=== PATIENT | male | born 1965 | race American Indian/Alaskan Native ===

== ENCOUNTER 2016-10-21 11:25 | Inpatient (IN) | payer BC ==
[2016-10-21] MEDS ORDERED: NORVASC PO SCH ×2 (12:00)
[2016-10-21] MEDS ORDERED: ZESTRIL PO SCH ×2 (12:00)
--- NOTE | 2016-10-21 13:31 | Admit Criteria Form ---
Admission Criteria Documentation: CARDIOLOGY GRG Clinical Indications for Admission to Inpatient Care ( Place 'X' for any and all applicable criteria): Hospital admission is needed for appropriate care of the patient because of ANY ONE of the following (1): [ ] I. Hemodynamic instability as indicated by ALL of the following (1)(2)(3) (4)(5) [ ]a) Vital signs or other findings not as expected for chronic patient condition or baseline [ ]b) Instability indicated by ANY ONE of the following: [ ]i) Hypotension [ ]ii) Symptomatic Tachycardia unresponsive to treatment ( e.g., analgesia, fluids, sedation as indicated) [ ]iii) Inadequate perfusion indicated by ANY ONE of the following: [ ] 1) Lactic acidosis (> 2 mmol/L) [ ] 2) New abnormal capillary refill (> 3 seconds) [ ] 3) Reduced urine output [ ] 4) New altered mental status [ ]iv) Orthostatic vital sign changes unresponsive to treatment (e.g., fluids) [ ]v) IV inotropic or vasopressor medication required to maintain adequate blood pressure or perfusion [ ] II. Severe heart failure as indicated by ANY ONE of the following(17)(18) [ ]a) Respiratory distress [ ]b) Hypotension [ ]c) Anasarca (refractory to outpatient therapy) [ ]d) Cardiac arrhythmias of immediate concern [ ]e) Myocardial ischemia [ ] III. Cardiac arrhythmias or findings of immediate concern indicated by ANY ONE of the following (19)(20): [ ] a) Heart rhythms that are inherently dangerous or unstable indicated by ANY ONE of the following (21)(22)(23): [ ] i) Resuscitated ventricular fibrillation or cardiac arrest [ ] ii) Ventricular escape rhythm [ ] iii) Sustained ventricular tachycardia (30 seconds or more of ventricular rhythm at greater than 100 beats per minute) [ ] iv) Nonsustained ventricular tachycardia and ANY ONE of the following: [ ] 1) Suspected cardiac ischemia as cause or consequence of ventricular tachycardia [ ] 2) In setting of acute myocarditis [ ] b) Unstable cardiac conduction defects indicated by ANY ONE of the following(23)(24)(25) [ ] i) Type II second-degree atrioventricular block [ ]ii) Third-degree atrioventricular block [ ]iii) New-onset left bundle branch block with suspected myocardial ischemia [ ]c) Any heart rhythm and ANY ONE of the following (21)(22)(26)(27) (28) [ ] i) Continuous long-term ECG monitoring needed (e.g., initiation of drug requiring monitoring for more than 24 hours) [ ] ii) Patient has automatic implanted cardioverter defibrillator that is repeatedly firing, malfunctioning, or in need of immediate adjustment of settings beyond the scope of ambulatory or observation care [ ]d) Heart rhythms of concern due to ANY ONE of the following: [ ] i) Hypotension [ ] ii) Respiratory distress [ ] iii) Association with other significant symptoms (e.g., bradycardia with syncope or ongoing dizziness, supraventricular tachycardia with chest pain (14)(15)(17) [ ] IV. Monitoring for cardiac contusion beyond the scope of observation care needed [A](30)(31)(32) [ ] V. Surgical or device complication (e.g., valve replacement complication , pacemaker dysfunction) (35)(41)(44)(45)(46) [ ] . Inpatient palliative care needed. [B](49) Also use Inpatient Palliative Care Criteria [ ] VII. Nonbacterial thrombotic (marantic) endocarditis (36)(43)(47)(48) [ X] VIII. Cardiology condition, symptom, or finding for which emergency and observation care has failed or are not considered appropriate. [ ] IX. Acute valvular disease requiring inpatient as indicated by ANY ONE of the following (41) [ ]a) Acute valvular regurgitation (42) [ ]b) Noninfectious valvulitis (43) [ ]c) Obstructive valve thrombosis [ ]d) Paravalvular leak [ ]e) Other significant valvular disorder remaining after emergency or observation level of care (as appropriate) [ ]X. Pericardial disease requiring inpatient treatment as indicated by ANY ONE of the following (33)(34)(35)(36)(37) [ ]a) Suspected tamponade (38)(39)(40) [ ]b) Hemopericardium [ ]c) Other significant pericardial disorder remaining after emergency or observation level of care (as appropriate) [ ] XI. Cardiac ischemia beyond scope of emergency and observation care. [ ] XII. Hypertension requiring inpatient treatment as indicated by ANY ONE of the following (6)(7)(8) [ ]a) SBP greater than 220 mm Hg or DBP greater than 120 mmHg despite treatment [ ]b) SBP greater than 140 mm Hg or DBP greater than 100 mm Hg with evidence of acute end organ damage as indicated by ANY ONE of the following [ ] i) Altered mental status [ ] ii) Acute renal failure as indicated by new onset of ANY ONE of the following (9)(10)(11)(12)(13) [ ]1) 3-fold rise in serum creatinine from baseline [ ]2) Serum creatinine greater than 4 mg/dL ( 354 micromoles/L) with acute rise greater than 0.5 mg/dL (44.2 micromoles/L) [ ]3) Reduction of more than 75% in estimated glomerular filtration rate from baseline [ ]4) Estimated glomerular filtration rate less than 35 mL/min/1.73m2 (0.59 mL/sec/1.73m2) in child up to 18 years of age [ ]5) Cessation of urine output indicated by ALL of the following [ ]A. Adequate volume status [ ]B. Inadequate urine output as indicated by ANY ONE of the following [ ]a. Urine output less than 0.3 mL/kg/hr for 24 hours [ ]b. Anuria (urine output less than 0.1 mL/kg/hr) for 12 hours [ ] iii) Aortic dissection [ ] iv) Myocardial Ischemia [ ] v) Left ventricular heart failure [ ]vi) Retinal Hemorrhage [ ]vii) Other significant finding [ ]c) Hypertension in child requiring inpatient treatment as indicated by ALL of the following(14)(15)(16) [ ] i) Outpatient treatment not effective, not available, or not appropriate [ ]ii) SBP or DBP greater than 95th percentile for age [ ]iii) Evidence of acute end organ damage as indicated by ANY ONE of the following [ ]1) Altered mental status [ ]2) Acute renal failure as indicated by new onset of ANY ONE of the following(9)(10)(11)(12)(13) [ ]A. 3-fold rise in serum creatinine from baseline [ ]B. Serum creatinine greater than 4 mg/dL (354 micromoles/L) with acute rise greater than 0.5 mg/dL (44.2 micromoles/L) [ ]C. Reduction of more than 75% in estimated glomerular filtration rate from baseline [ ]D. Estimated glomerular filtration rate less than 35 mL/min/1.73m2 (0.59 mL/sec/1.73m2) in child up to 18 years of age [ ]E. Cessation of urine output indicated by ALL of the following [ ]a. Adequate volume status [ ]b. Inadequate urine output as indicated by ANY ONE of the following [ ]i) Urine output less than 0.3 mL/kg/hr for 24 hours [ ]ii) Anuria ( urine output less than 0.1 mL/kg/hr) for 12 hours [ ]3) Severe headache [ ]4) Visual disturbance [ ]5) Retinal hemorrhage [ ]6) Other significant finding [ ]XIII. Complications of transplanted heart indicated by ANY ONE of the following(61): [ ]a) Acute graft rejection requiring inpatient management (eg, intravenous immunosuppression)(62)(63) [ ]b) Acute graft heart failure indicated by ANY ONE of the following(64): [ ]i) Hemodynamic instability [ ]ii) Cardiac arrhythmias of immediate concern [ ]iii) Pulmonary edema that is very severe (eg, mechanical ventilation needed, imminent or likely, need for 100% oxygen to keep oxygen saturation above 90%) [ ]iv) Pulmonary edema that is persistent as indicated by ALL of the following: [ ]1) New need for oxygen therapy to keep oxygen saturation above 90% (or increased FiO2 need from baseline) [ ]2) Has not improved sufficiently with emergency department or observation care IV diuretics or other heart failure treatments[E] [ ]v) Altered mental status that is severe or persistent [ ]vi) Increased creatinine (new on laboratory test) with reduction of more than 50% in estimated glomerular filtration rate from baseline [ ]vii) Progressively (ongoing) rising creatinine (known from past laboratory test) with reduction of more than 25% in estimated glomerular filtration rate from baseline [ ]viii) Acute renal failure [ ]ix) Acute peripheral ischemia (eg, examination shows pulseless, cool, mottled, or cyanotic extremity) [ ]x) Pulmonary artery catheter monitoring needed [ ]xi) Other sign or symptom of heart failure requiring inpatient treatment (ie, too severe or not responsive to outpatient and observation care treatment) [ ]c) Infection requiring inpatient management (eg, Hemodynamic instability, need for intravenous antimicrobial treatment)(66)(67)(68)(69)(70) [ ]d) Cardiac allograft vasculopathy requiring inpatient management ( eg evidence of cardiac ischemia)(71) [ ]e) Other complication of transplanted heart (eg, stroke, severe pulmonary hypertension, severe valvular dysfunction) requiring inpatient management(72) The original [facility] [employer] content created by [email or web address] has been revised. The portions of the content which have been revised are identified through the use of italic text or in bold, and [facility] has neither reviewed nor approved the modified material. All other unmodified content is copyright [facility] [employer]. Please see references footnoted in the original [facility] [employer] edition 2016 Admission Criteria Met: Yes
[2016-10-21] MEDS ORDERED: APRESOLINE IV PRN (14:19)
[2016-10-21 14:42] LABS: Basophils % (Auto) 0.3 % (0.0-1.8); Eosinophils % (Auto) 0.2 % (0.0-4.3); Hematocrit 50.2 % (35.5-45.6); Hemoglobin 16.9 gm/dl (11.8-15.2); Mean Corpuscular HGB Conc 34 % (32-34); Mean Corpuscular Hemoglobin 31 pg (28-32); Mean Corpuscular Volume 92 fl (84-94); Platelet Count 265 K/mm3 (140-440); Red Blood Count 5.46 M/mm3 (3.65-5.03); Red Cell Distribution Width 13.8 % (13.2-15.2); White Blood Count 5.3 K/mm3 (4.5-11.0)
[2016-10-21 14:52] LABS: INR 1.02 (0.87-1.13)
[2016-10-21] MEDS: HCTZ PO SCH (14:52)
[2016-10-21] MEDS: PROCARDIA XL PO SCH ×2 (14:52→22:05)
[2016-10-21 14:53] LABS: Partial Thromboplastin Time 36.1 Sec. (24.2-36.6)
[2016-10-21] MEDS: LOVENOX SUB-Q SCH (14:53)
[2016-10-21 15:02] LABS: Magnesium 2.2 mg/dL (1.7-2.3); Phosphorous 2.5 mg/dL (2.5-4.5)
[2016-10-21 15:06] LABS: Alanine Aminotransferase 31 units/L (7-56); Albumin/Globulin Ratio 1.2 %; Alkaline Phosphatase 60 units/L (35-129); Anion Gap 18 mmol/L; Bilirubin,Total 0.5 mg/dL (0.1-1.2); Blood Urea Nitrogen 16 mg/dL (9-20); Calcium 9.4 mg/dL (8.4-10.2); Carbon Dioxide 25 mmol/L (22-30); Chloride 100.1 mmol/L (98-107); Glucose 114 mg/dL (75-100); Potassium 4.2 mmol/L (3.6-5.0); Sodium 139 mmol/L (137-145); Total Protein 7.4 g/dL (6.3-8.2)
[2016-10-21] MEDS ORDERED: LASIX IV ONE (16:11)
--- NOTE | 2016-10-21 16:39 | Consultation ---
History of Present Illness Consult date: 10/21/16 Requesting physician: TIBURCIO BLANKENSHIP Consult reason: other (abnormal EKG) History of present illness: Pt is a 51 YO male with a past medical history significant for HTN. He is previously unknown to our practice. He presented with c/o SOB, orthopnea, and ANDREA x 2 weeks. He initially thought his symptoms were allergy related and was prescribed an inhaler by his PCP. His symptoms did not improve with the inhaler , and he returned today for OP follow up. In the office, his SBP was noted to be >200 per pt report. He was sent to hospital for further eval/management. He denies any chest pain, palpitations, BLE edema, n/v, diaphoresis, dizziness, or syncope. He reports that he has not taken any BP meds for the past 1-2 months. Past History Past Medical History: hypertension Past Surgical History: No surgical history Social history: , lives with family Family history: no significant family history Medications and Allergies Allergies Allergy/AdvReac Type Severity Reaction Status Date / Time No Known Allergies Allergy Unverified 10/21/16 11:28 Home Medications Medication Instructions Recorded Confirmed Last Taken Type Lisinopril [Zestril TAB] 40 mg PO QDAY 10/21/16 10/21/16 1 Day Ago History 40 mg Active Meds: Active Medications Enoxaparin Sodium (Lovenox) 40 mg SUB-Q QDAY [facility] Last Admin: 10/21/16 14:53 Dose: 40 mg Hydralazine HCl (Apresoline) 20 mg IV Q8HR PRN PRN Reason: Hypertension Last Admin: 10/21/16 14:52 Dose: 20 mg Hydrochlorothiazide (Hctz) 25 mg PO QDAY [facility] Last Admin: 10/21/16 14:52 Dose: 25 mg Lisinopril (Zestril) 40 mg PO DAILY [facility] Metoprolol Tartrate (Lopressor) 50 mg PO BID [facility] Nifedipine (Procardia Xl) 60 mg PO BID [facility] Last Admin: 10/21/16 14:52 Dose: 60 mg Review of Systems All systems: negative Cardiovascular: orthopnea, shortness of breath, dyspnea on exertion, no chest pain Respiratory: shortness of breath, dyspnea on exertion, no cough, no congestion, no wheezing, no pain on inspiration Physical Examination Vital Signs Pulse Resp Pulse Ox 110 H 22 97 10/21/16 13:31 10/21/16 13:31 10/21/16 13:31 General appearance: no acute distress HEENT: Positive: PERRL, Normocephaly, Mucus Membranes Moist Neck: Positive: neck supple, trachea midline Cardiac: Positive: Reg Rate and Rhythm, S1/S2 Lungs: Positive: Other (bibasilar rales ) Neuro: Positive: Grossly Intact, Cranial Nerve 2-12 Intact Abdomen: Positive: Unremarkable, Soft, Active Bowel Sounds. Negative: Tender Skin: Positive: Clear. Negative: Rash, Wound Musculoskeletal: No Fluid Collection, No Pain, Normal Range of Motion Extremities: Present: upper extr. pulses, lower extr. pulses. Absent: edema Results 10/21/16 13:34 10/21/16 13:34 Cardiac Enzymes 10/21/16 Range/Units 13:34 AST 22 (5-40) units/L Coagulation 10/21/16 Range/Units 13:34 PT 13.3 (12.2-14.9) Sec. INR 1.02 (0.87-1.13) APTT 36.1 (24.2-36.6) Sec. CBC 10/21/16 Range/Units 13:34 WBC 5.3 (4.5-11.0) K/mm3 RBC 5.46 H (3.65-5.03) M/mm3 Hgb 16.9 H (11.8-15.2) gm/dl Hct 50.2 H (35.5-45.6) % Plt Count 265 (140-440) K/mm3 Lymph # 1.2 (1.2-5.4) K/mm3 [place] # 0.4 (0.0-0.8) K/mm3 Eos # 0.0 (0.0-0.4) K/mm3 Baso # 0.0 (0.0-0.1) K/mm3 Comprehensive Metabolic Panel 10/21/16 Range/Units 13:34 Sodium 139 (137-145) mmol/L Potassium 4.2 (3.6-5.0) mmol/L Chloride 100.1 (98-107) mmol/L Carbon Dioxide 25 (22-30) mmol/L BUN 16 (9-20) mg/dL Creatinine 1.3 (0.8-1.5) mg/dL Glucose 114 H (75-100) mg/dL Calcium 9.4 (8.4-10.2) mg/dL AST 22 (5-40) units/L ALT 31 (7-56) units/L Alkaline Phosphatase 60 (35-129) units/L Total Protein 7.4 (6.3-8.2) g/dL Albumin 4.0 (3.9-5) g/dL - Imaging and Cardiology Echo: pending EKG: report reviewed EKG interpretations - Telemetry EKG Rhythm: Sinus Rhythm - EKG Sinus rhythms and dysrhythmias: sinus rhythm Chamber hypertrophy or enlargement: left ventricular hypertro Assessment and Plan Assessment: Acute heart failure Accelerated HTN Plan: Obtain CXR. Obtain echo. Initiate BB. Cont procardia, ACEI, HCTZ, and PRN IV hydralazine. Give IV lasix, 40mg x 1 dose. Repeat BMP in AM. Assessment and plan reviewed with pt at bedside. The patient has been seen in conjunction with Dr. Luz who agrees with the assessment and plan of care.
--- NOTE | 2016-10-21 20:34 | History and Physical Report ---
History of Present Illness Date of examination: 10/21/16 Date of admission: 10/21/16 12:21 Chief complaint: Shortness of breath, elevated HTN History of present illness: Patient is a 51-year-old gentleman was a history of hypertension well-known to me, came in the office about a week ago complaining of allergies with congestion. Patient was given allergy medications. Called back to the office that he was having shortness of breath. He was advised to come in today. He has stopped taking his hypertensive medications for over 1 month ago. He claims that he had been exercising and eating right and therefore is that his blood pressure should be within normal limits. In the office today blood pressure was greater than 180/130. Patient also complained of shortness of breath and palpitation. Direct admission was therefore requested. On direct admission EKG showed abnormal findings consistent with ischemic changes on the lateral leads. Chest x-ray shows increased bronchial markings. ProBNP was greater than 3000. Cardiology consult was obtained. Echocardiogram as order as well as Eriberto and ACEI. Pt wa diagnosed with congestive heart failure. Denies any chest pain, no diaphoresis. However had palpitations and shortness of breath. Past History Past Medical History: hypertension Past Surgical History: No surgical history Social history: , lives with family Family history: no significant family history Medications and Allergies Allergies Allergy/AdvReac Type Severity Reaction Status Date / Time No Known Allergies Allergy Unverified 10/21/16 11:28 Home Medications Medication Instructions Recorded Confirmed Last Taken Type Lisinopril [Zestril TAB] 40 mg PO QDAY 10/21/16 10/21/16 1 Day Ago History 40 mg Active Meds: Active Medications Enoxaparin Sodium (Lovenox) 40 mg SUB-Q QDAY [facility] Last Admin: 10/21/16 14:53 Dose: 40 mg Hydralazine HCl (Apresoline) 20 mg IV Q8HR PRN PRN Reason: Hypertension Last Admin: 10/21/16 14:52 Dose: 20 mg Hydrochlorothiazide (Hctz) 25 mg PO QDAY [facility] Last Admin: 10/21/16 14:52 Dose: 25 mg Lisinopril (Zestril) 40 mg PO DAILY [facility] Metoprolol Tartrate (Lopressor) 50 mg PO BID [facility] Nifedipine (Procardia Xl) 60 mg PO BID [facility] Last Admin: 10/21/16 14:52 Dose: 60 mg Review of systems Constitutional: Well Nouridhed and Well developed. Head: NC/ AT Eyes: Denies any visual impairments. No discharge from the eyes Nose: Denies any rhinorrhea or epistaxis Throats: Denies any post nasal drainage. Ears: Denies any hearing deficits Cardiovascular system: Has shortness of breath. No orthopnea, paroxysmal nocturnal dyspnea, or palpitation. Respiratory system: Denies any cough, difficulty breathing, wheezing, pleuritic chest pain, Gastrointestinal system: Denies any abdominal pain, nausea vomiting, hematemesis or melena. Neurological system: Denies any headache, slurred speech, facial droop, lateralizing weakness Genitalia system: Denies any dysuria, urinary frequency or urgency, urethral discharge Skin: No rashes, hyperpigmented spots. Hematological: Denies any cervical tenderness hemorrhages or petechia. Immunological: Denies any multiple septic spots, Lymphatic: Denies any generalized lymphadenopathy. Endocrine: Denies any polyuria, polydipsia, polyphagia. No heat or cold intolerance. Musculoskeletal system: No joint pain or swelling. Psych: No visual, tactile, auditory or hallucination Exam - Constitutional Vitals: Temp Pulse Resp BP Pulse Ox 98.4 F 100 H 20 126/90 98 10/21/16 18:00 10/21/16 18:00 10/21/16 18:00 10/21/16 18:31 10/21/16 18:00 General appearance: Present: no acute distress, well-nourished - EENT Eyes: Present: PERRL ENT: hearing intact, clear oral mucosa - Neck Neck: Present: supple, normal ROM - Respiratory Respiratory effort: normal Respiratory: bilateral: CTA - Cardiovascular Heart Sounds: Present: S1 & S2. Absent: rub, click - Extremities Extremities: pulses symmetrical, No edema Peripheral Pulses: within normal limits - Abdominal General gastrointestinal: Present: soft, non-tender, non-distended, normal bowel sounds Male genitourinary: Present: normal - Integumentary Integumentary: Present: clear, warm, dry - Musculoskeletal Musculoskeletal: gait normal, strength equal bilaterally - Psychiatric Psychiatric: appropriate mood/affect, intact judgment & insight - Neurologic Neurologic: CNII-XII intact, moves all extremities Results - Labs CBC & Chem 7: 10/21/16 13:34 10/21/16 13:34 Labs: Abnormal lab results 10/21/16 10/21/16 10/21/16 Range/Units 13:34 13:34 13:34 RBC 5.46 H (3.65-5.03) M/mm3 Hgb 16.9 H (11.8-15.2) gm/dl Hct 50.2 H (35.5-45.6) % [place] % (Auto) 7.7 H (0.0-7.3) % Glucose 114 H (75-100) mg/dL NT-Pro-B Natriuret Pep 3722 H (0-900) pg/mL Assessment and Plan 1. Acute heart failure: Regular function to be evaluated with echocardiogram. In the interim we'll commence patient on carvedilol, lisinopril, nifedipine, and diaphoretic. Strict input and output. Daily weights. 2 g sodium diet. 2. Malignant hypertension: Commence patient on the above medication that included lisinopril, beta blockers. Congenital blockers. 3, noncompliance with medication: Calcium noncompliance was done. 4. DVT prophylaxis with Lovenox and GI Pepcid.
[2016-10-21] MEDS ORDERED: TYLENOL PO PRN (21:37)
[2016-10-21] MEDS: LOPRESSOR PO SCH (22:05)
[2016-10-22 07:40] LABS: Basophils % (Auto) 0.5 % (0.0-1.8); Eosinophils % (Auto) 1.1 % (0.0-4.3); Hematocrit 48.7 % (35.5-45.6); Hemoglobin 16.4 gm/dl (11.8-15.2); Mean Corpuscular HGB Conc 34 % (32-34); Mean Corpuscular Hemoglobin 31 pg (28-32); Mean Corpuscular Volume 91 fl (84-94); Platelet Count 266 K/mm3 (140-440); Red Blood Count 5.35 M/mm3 (3.65-5.03); Red Cell Distribution Width 14.4 % (13.2-15.2); White Blood Count 6.3 K/mm3 (4.5-11.0)
[2016-10-22 07:44] LABS: Alanine Aminotransferase 27 units/L (7-56); Albumin/Globulin Ratio 1.3 %; Alkaline Phosphatase 59 units/L (35-129); Anion Gap 17 mmol/L; BUN/Creatinine Ratio 11.66; Bilirubin,Total 0.4 mg/dL (0.1-1.2); Blood Urea Nitrogen 14 mg/dL (9-20); Calcium 9.2 mg/dL (8.4-10.2); Carbon Dioxide 27 mmol/L (22-30); Chloride 97.6 mmol/L (98-107); Glucose 94 mg/dL (75-100); Potassium 3.8 mmol/L (3.6-5.0); Sodium 138 mmol/L (137-145); Total Protein 7.2 g/dL (6.3-8.2)
--- NOTE | 2016-10-22 09:33 | Progress Note ---
Assessment and Plan 1. Acute heart failure: Regular function to be evaluated with echocardiogram. In the interim we'll commence patient on carvedilol, lisinopril, nifedipine, and diaphoretic. Strict input and output. Daily weights. 2 g sodium diet. 2. Malignant hypertension: Controlled. Continue patient on the above medication that included lisinopril, beta blockers. Congenital blockers. 3, noncompliance with medication: Calcium noncompliance was done. 4. DVT prophylaxis with Lovenox and GI Pepcid. Subjective Date of service: 10/22/16 Principal diagnosis: Heart Failure, Malignant Hypertension,Abnormal EKG Interval history: No new complaints. Objective - Constitutional Vitals: Vital Signs - 12hr 10/21/16 10/21/16 10/21/16 22:00 22:05 22:06 Temperature Pulse Rate 90 Pulse Rate [ 90 Left Radial] Pulse Rate [ Right Radial] Respiratory 18 18 Rate Blood Pressure 142/90 Blood Pressure [Left Arm] 10/21/16 10/22/16 10/22/16 23:06 00:00 04:00 Temperature 98.3 F 97.8 F Pulse Rate Pulse Rate [ Left Radial] Pulse Rate [ 70 80 Right Radial] Respiratory 18 20 20 Rate Blood Pressure Blood Pressure 136/82 117/78 [Left Arm] General appearance: Present: no acute distress, well-nourished - EENT Eyes: PERRL, EOM intact - Neck Neck: supple, normal ROM - Respiratory Respiratory effort: normal Respiratory: bilateral: CTA - Cardiovascular Rhythm: regular Heart Sounds: Present: S1 & S2. Absent: gallop, rub Extremities: No edema, normal color, Full ROM - Gastrointestinal General gastrointestinal: Present: soft, non-tender, non-distended, normal bowel sounds - Integumentary Integumentary: clear, warm, dry - Musculoskeletal Musculoskeletal: 1, strength equal bilaterally - Neurologic Neurologic: moves all extremities - Psychiatric Psychiatric: memory intact, appropriate mood/affect, intact judgment & insight - Labs CBC & Chem 7: 10/22/16 06:35 10/22/16 06:35 Labs: Abnormal lab results 10/21/16 10/21/16 10/21/16 Range/Units 13:34 13:34 13:34 RBC 5.46 H (3.65-5.03) M/mm3 Hgb 16.9 H (11.8-15.2) gm/dl Hct 50.2 H (35.5-45.6) % Lymph % (Auto) (13.4-35.0) % [place] % (Auto) 7.7 H (0.0-7.3) % Chloride (98-107) mmol/L Glucose 114 H (75-100) mg/dL NT-Pro-B Natriuret Pep 3722 H (0-900) pg/mL 10/22/16 10/22/16 Range/Units 06:35 06:35 RBC 5.35 H (3.65-5.03) M/mm3 Hgb 16.4 H (11.8-15.2) gm/dl Hct 48.7 H (35.5-45.6) % Lymph % (Auto) 37.0 H (13.4-35.0) % [place] % (Auto) 11.6 H (0.0-7.3) % Chloride 97.6 L (98-107) mmol/L Glucose (75-100) mg/dL NT-Pro-B Natriuret Pep (0-900) pg/mL
--- NOTE | 2016-10-22 09:49 | XRay Report ---
CHEST 2 VIEWS INDICATION: Shortness of breath. COMPARISON: None similar at this institution. FINDINGS: PA and lateral chest radiographs demonstrate top normal heart size. Normal mediastinal and hilar contours. Left more than right basilar opacities may represent any combination of pleural effusions and underlying atelectasis/consolidation. No CHF however. Mild thoracic spondylosis. CONCLUSION: Small bibasilar opacities/effusions, as described. Thank you for the opportunity to participate in this patient's care.
[2016-10-22] MEDS: PROCARDIA XL PO SCH (09:59)
[2016-10-22] MEDS ORDERED: ZESTRIL PO SCH (10:00)
[2016-10-22] MEDS: HCTZ PO SCH (10:00)
[2016-10-22] MEDS ORDERED: PEPCID IV SCH (10:00)
[2016-10-22] MEDS ORDERED: ATIVAN PO SCH (10:00)
[2016-10-22] MEDS: LOPRESSOR PO SCH (10:01)
[2016-10-22] MEDS: LOVENOX SUB-Q SCH (10:02)
--- NOTE | 2016-10-22 13:29 | Progress Note ---
Assessment and Plan Assessment: Acute systolic heart failure - improved. Accelerated HTN - improved. CMP Plan: Echo reviewed - EF 30 - 35%, impaired relaxation. Currently stable cardiac status. Cont current medical management, including BB and ACEI. Pt may discharge home from cardiology standpoint. Plan for ischemic evaluation (stress test) as OP for further evaluation of CMP. Follow up in our [place] office with Dr. Luz on 11/08/2016 @ 2:15PM. Assessment and plan reviewed with pt at bedside. The patient has been seen in conjunction with Dr. Luz who agrees with the assessment and plan of care. Subjective Date of service: 10/22/16 Principal diagnosis: Heart Failure, Malignant Hypertension,Abnormal EKG Interval history: Pt resting comfortably in bed, states he is feeling much better, denies any complaints. NAD, BPs improved, in SR on tele. Objective Last Vital Signs Temp 97.6 F 10/22/16 13:17 Pulse 68 10/22/16 13:17 Resp 22 10/22/16 13:17 BP 119/89 10/22/16 13:17 Pulse Ox 96 10/22/16 13:17 - Physical Examination HEENT: Positive: PERRL, Normocephaly, Mucus Membranes Moist Neck: Positive: neck supple, trachea midline Cardiac: Positive: Reg Rate and Rhythm, S1/S2 Lungs: Positive: Normal Exam, clear to auscultation, Normal Breath Sounds Neuro: Positive: Grossly Intact, Cranial Nerve 2-12 Intact Abdomen: Positive: Unremarkable, Soft, Active Bowel Sounds. Negative: Tender Skin: Positive: Clear. Negative: Rash, Wound Musculoskeletal: No Fluid Collection, No Pain, Normal Range of Motion Extremities: Present: upper extr. pulses, lower extr. pulses. Absent: edema - Labs and Meds Cardiac Enzymes 10/21/16 10/22/16 Range/Units 13:34 06:35 AST 22 20 (5-40) units/L Coagulation 10/21/16 Range/Units 13:34 PT 13.3 (12.2-14.9) Sec. INR 1.02 (0.87-1.13) APTT 36.1 (24.2-36.6) Sec. CBC 10/21/16 10/22/16 Range/Units 13:34 06:35 WBC 5.3 6.3 (4.5-11.0) K/mm3 RBC 5.46 H 5.35 H (3.65-5.03) M/mm3 Hgb 16.9 H 16.4 H (11.8-15.2) gm/dl Hct 50.2 H 48.7 H (35.5-45.6) % Plt Count 265 266 (140-440) K/mm3 Lymph # 1.2 2.3 (1.2-5.4) K/mm3 [place] # 0.4 0.7 (0.0-0.8) K/mm3 Eos # 0.0 0.1 (0.0-0.4) K/mm3 Baso # 0.0 0.0 (0.0-0.1) K/mm3 Comprehensive Metabolic Panel 10/21/16 10/22/16 Range/Units 13:34 06:35 Sodium 139 138 (137-145) mmol/L Potassium 4.2 3.8 (3.6-5.0) mmol/L Chloride 100.1 97.6 L (98-107) mmol/L Carbon Dioxide 25 27 (22-30) mmol/L BUN 16 14 (9-20) mg/dL Creatinine 1.3 1.2 (0.8-1.5) mg/dL Glucose 114 H 94 (75-100) mg/dL Calcium 9.4 9.2 (8.4-10.2) mg/dL AST 22 20 (5-40) units/L ALT 31 27 (7-56) units/L Alkaline Phosphatase 60 59 (35-129) units/L Total Protein 7.4 7.2 (6.3-8.2) g/dL Albumin 4.0 4.0 (3.9-5) g/dL - Imaging and Cardiology EKG: report reviewed Echo: pending - EKG Sinus rhythms and dysrhythmias: sinus rhythm Chamber hypertrophy or enlargement: left ventricular hypertro
--- NOTE | 2016-10-22 15:38 | Discharge Summary ---
Providers - Providers Date of Admission: 10/21/16 12:21 Date of discharge: 10/22/16 Attending physician: TIBURCIO BLANKENSHIP 10/21/16 14:34 Consult to Physician [CONS] Routine Consulting Provider: PEDRO FINN Reason For Exam: Abnormal EKG Place consult to:: Regina Castro [employer]IST Notified:: Yes Phone number called:: Overhead page Was contact made?: Yes If yes, spoke with:: Regina Castro Time called:: 14:35 Primary care physician: TIBURCIO BLANKENSHIP Hospitalization Reason for admission: Diastolic heart failure, palpitation, SOB Condition: Stable Pertinent studies: ECHO showed LVEF of 30-35% with diastolic dysfunction, CXR showed bibasillar opacities/effussion. Procedures: None Disposition: DISCHARGED TO HOME OR SELFCARE Core Measure Documentation - Palliative Care Palliative Care/ Comfort Measures: Not Applicable - Core Measures Any of the following diagnoses?: heart failure - Heart Failure Discharge Requirements FEDERICO/ARB for LVSD if EF <40%: Yes Beta mickey at discharge: Yes Exam - Constitutional Vitals: Temp Pulse Resp BP Pulse Ox 97.6 F 68 22 119/89 96 10/22/16 13:17 10/22/16 13:17 10/22/16 13:17 10/22/16 13:17 10/22/16 13:17 General appearance: Present: no acute distress, well-nourished - EENT Eyes: Present: PERRL ENT: hearing intact, clear oral mucosa - Neck Neck: Present: supple, normal ROM - Respiratory Respiratory effort: normal Respiratory: bilateral: CTA - Cardiovascular Heart Sounds: Present: S1 & S2. Absent: rub, click - Extremities Extremities: pulses symmetrical, No edema Peripheral Pulses: within normal limits - Abdominal General gastrointestinal: Present: soft, non-tender, non-distended, normal bowel sounds Male genitourinary: Present: deferred - Integumentary Integumentary: Present: clear, warm, dry - Musculoskeletal Musculoskeletal: gait normal, strength equal bilaterally - Psychiatric Psychiatric: appropriate mood/affect, intact judgment & insight - Neurologic Neurologic: CNII-XII intact, moves all extremities Plan Activity: advance as tolerated Diet: low fat, low cholesterol, low salt Special Instructions: record daily BP diary Follow up with: TIBURCIO BLANKENSHIP MD [Primary Care Provider] - 3 Days Prescriptions: Hydrochlorothiazide [HCTZ] 25 mg PO QDAY #30 tablet Lisinopril [Zestril TAB] 40 mg PO BID #60 tablet LORazepam [Ativan] 0.5 mg PO BID PRN #30 tablet PRN Reason: Anxiety Metoprolol [Lopressor TAB] 50 mg PO BID #60 tablet
[2016-10-22 16:27] VITALS: BP 133/82
== END 2016-10-22 18:46 | disposition home or self-care (01) | DRG 293 ==
LOC: 3A 11:25 → UNDOADMIN 11:25 → 3A 12:21 → EDSEX 12:21
PROVIDERS: ADMIT Family Medicine; ATTEND Family Medicine
DX: I11.0 Hypertensive heart disease with heart failure (principal); I50.41 Acute combined systolic (congestive) and diastolic (congestive) heart failure; I42.9 Cardiomyopathy, unspecified; Z91.14 Patient's other noncompliance with medication regimen
CPT/HCPCS: 36415; 71020; 80053; 83735; 83880; 84100; 85025; 85610; 85730; 93005; 93010; 93306; J0360; J1650; J1940

== ENCOUNTER 2017-05-04 18:58 | Emergency (ER) | payer BC ==
[2017-05-04] MEDS ORDERED: TOPROL XL PO ONE ×2 (19:31→19:32)
[2017-05-04 20:01] LABS: Basophils % (Auto) 0.3 % (0.0-1.8); Eosinophils % (Auto) 0.2 % (0.0-4.3); Hematocrit 44.2 % (35.5-45.6); Hemoglobin 15.5 gm/dl (11.8-15.2); Mean Corpuscular HGB Conc 35 % (32-34); Mean Corpuscular Hemoglobin 33 pg (28-32); Mean Corpuscular Volume 93 fl (84-94); Platelet Count 290 K/mm3 (140-440); Red Blood Count 4.77 M/mm3 (3.65-5.03); White Blood Count 9.1 K/mm3 (4.5-11.0)
[2017-05-04 20:02] LABS: Anion Gap 18 mmol/L; BUN/Creatinine Ratio 14; Blood Urea Nitrogen 15 mg/dL (9-20); Calcium 9.5 mg/dL (8.4-10.2); Carbon Dioxide 27 mmol/L (22-30); Chloride 97.7 mmol/L (98-107); Glucose 117 mg/dL (75-100); Potassium 3.7 mmol/L (3.6-5.0); Sodium 139 mmol/L (137-145)
--- NOTE | 2017-05-04 20:37 | Cat Scan Report ---
FINAL REPORT PROCEDURE: CT HEAD/BRAIN WO CON TECHNIQUE: Computerized tomography of the head was performed without contrast material. HISTORY: THROBBING HEADACHE COMPARISON: No prior studies are available for comparison. FINDINGS: Skull and scalp: Normal. Paranasal sinuses: Normal. Ventricles and subarachnoid spaces: Normal. Cerebrum: No evidence of hemorrhage, acute infarction or mass . Cerebellum and brainstem: No evidence of hemorrhage, acute infarction or mass. Vasculature: Normal. Comments: None. IMPRESSION: Normal Examination
[2017-05-04 21:52] LABS: Bilirubin,Urine NEG (Negative); Blood,Urine NEG (Negative); Ketones,Urine NEG (Negative); Leukocyte Esterase,Urine NEG (Negative); Nitrite,Urine NEG (Negative); Protein,Urine <15 mg/dL mg/dL (Negative); Urobilinogen,Urine < 2.0 mg/dL (<2.0); WBC,Urine < 1.0 /HPF (0.0-6.0)
[2017-05-05] MEDS ORDERED: CATAPRES PO ONE (00:25)
--- NOTE | 2017-05-05 01:24 | Emergency Department Report ---
HPI - General Chief Complaint: High BP Time Seen by Provider: 05/05/17 01:02 - [facility] HPI: M[place] 19 The patient is a 52-year-old male presented with a chief complaint of headache and hypertension. Patient states he had to leave work today because he developed a headache which is described as tightness. The patient denies nausea and vomiting. The patient states he's been compliant with his blood pressure medication but it does not seem to control his blood pressure. The patient currently gives his headache a score of 7-8/10. Location: Head Duration: One day Quality: Tightness Severity: 7-8/10 Modifying factors: [see above] Context: [see above] Mode of transportation: The patient drove himself to the emergency department and there are no visitors present ED Past Medical Hx - Past Medical History Previous Medical History?: Yes Hx Hypertension: Yes Hx Congestive Heart Failure: Yes - Family History Family history: no significant - Social History Smoking Status: Never Smoker Substance Use Type: None (denies illicit drug use) - Medications Home Medications: Home Medications Medication Instructions Recorded Confirmed Last Taken Type Lisinopril [Zestril TAB] 40 mg PO BID #60 tablet 10/22/16 05/05/17 1 Day Ago Rx Metoprolol [Lopressor TAB] 50 mg PO QDAY 05/05/17 05/05/17 2 Weeks Ago History hydrALAZINE [Apresoline TAB] 100 mg PO TID 05/05/17 05/05/17 1 Day Ago History ED Review of Systems ROS: Stated complaint: DIZZY, HIGH BLOOD PRESSURE Other details as noted in HPI Comment: All other systems reviewed and negative Constitutional: denies: chills, fever Eyes: denies: eye pain, eye discharge, vision change ENT: denies: ear pain, throat pain Respiratory: denies: cough, shortness of breath, wheezing Cardiovascular: denies: chest pain, palpitations Endocrine: no symptoms reported Gastrointestinal: denies: abdominal pain, nausea, diarrhea Genitourinary: denies: urgency, dysuria Musculoskeletal: denies: back pain, joint swelling, arthralgia Skin: denies: rash, lesions Neurological: headache Psychiatric: denies: anxiety, depression Hematological/Lymphatic: denies: easy bleeding, easy bruising Physical Exam - Physical Exam Vital Signs: Vital Signs 05/04/17 05/04/17 05/05/17 19:12 19:33 00:21 Temperature 98.0 F 98.5 F Pulse Rate 96 H 96 H 89 Respiratory 20 16 Rate Blood Pressure 197/121 197/121 Blood Pressure 212/134 [Left] O2 Sat by Pulse 97 98 Oximetry 05/05/17 05/05/17 00:35 00:57 Temperature Pulse Rate 89 Respiratory 16 Rate Blood Pressure 212/134 Blood Pressure [Left] O2 Sat by Pulse 98 Oximetry Physical Exam: GENERAL: The patient is well-developed well-nourished male sitting on stretcher not appearing to be in acute distress. [] HEENT: Normocephalic. Atraumatic. Extraocular motions are intact. Patient has moist mucous membranes. NECK: Supple. Trachea midline CHEST/LUNGS: Clear to auscultation. There is no respiratory distress noted. HEART/CARDIOVASCULAR: Regular. There is no tachycardia. There is no gallop rub or murmur. ABDOMEN: Abdomen is soft, nontender. Patient has normal bowel sounds. There is no abdominal distention. SKIN: There is no rash. There is no edema. There is no diaphoresis. NEURO: The patient is awake, alert, and oriented. The patient is cooperative. The patient has no focal neurologic deficits. The patient has normal speech. Cranial nerves II through XII grossly intact, no drift MUSCULOSKELETAL: There is no evidence of acute injury. ED Course Vital Signs 05/04/17 05/04/17 05/05/17 19:12 19:33 00:21 Temperature 98.0 F 98.5 F Pulse Rate 96 H 96 H 89 Respiratory 20 16 Rate Blood Pressure 197/121 197/121 Blood Pressure 212/134 [Left] O2 Sat by Pulse 97 98 Oximetry 05/05/17 05/05/17 00:35 00:57 Temperature Pulse Rate 89 Respiratory 16 Rate Blood Pressure 212/134 Blood Pressure [Left] O2 Sat by Pulse 98 Oximetry - Reevaluation(s) Reevaluation #1: 05/05/17 02:45 BP improved to 157/97 ED Medical Decision Making - Lab Data Result diagrams: 05/04/17 19:27 05/04/17 19:27 Laboratory Tests 05/04/17 05/04/17 05/04/17 19:27 19:27 21:38 WBC 9.1 RBC 4.77 Hgb 15.5 H Hct 44.2 MCV 93 MCH 33 H MCHC 35 H RDW 14.0 Plt Count 290 Lymph % (Auto) 12.8 L [place] % (Auto) 5.6 Eos % (Auto) 0.2 Baso % (Auto) 0.3 Lymph # 1.2 [place] # 0.5 Eos # 0.0 Baso # 0.0 Seg Neutrophils % 81.1 H Seg Neutrophils # 7.3 Sodium 139 Potassium 3.7 Chloride 97.7 L Carbon Dioxide 27 Anion Gap 18 BUN 15 Creatinine 1.1 Estimated GFR > 60 BUN/Creatinine Ratio 14 Glucose 117 H Calcium 9.5 Urine Color Yellow Urine Turbidity Clear Urine pH 6.0 Ur Specific [place] 1.015 Urine Protein <15 mg/dl Urine Glucose (UA) Neg Urine Ketones Neg Urine Blood Neg Urine Nitrite Neg Urine Bilirubin Neg Urine Urobilinogen < 2.0 Ur Leukocyte Esterase Neg Urine WBC (Auto) < 1.0 Urine RBC (Auto) 1.0 U Epithel Cells (Auto) < 1.0 - EKG Data -: EKG Interpreted by [facility] EKG shows normal: sinus rhythm Rate: normal - EKG Data When compared to previous EKG there are: changes noted Interpretation: nonspecific ST-T wave nicole - Radiology Data Radiology results: report reviewed (CT head), image reviewed (CT head) CT head (read by radiologist)- normal examination - Differential Diagnosis hypertension, ICH Critical care attestation.: If time is entered above; I have spent that time in minutes in the direct care of this critically ill patient, excluding procedure time. ED Disposition Clinical Impression: Hypertension, Headache Disposition: - TO HOME OR SELFCARE Is pt being admited?: No Does the pt Need Aspirin: No Condition: Stable Instructions: Hypertension (ED) Additional Instructions: Return to the emergency department immediately should you develop worsening symptoms, fever, inability to tolerate food or liquid or any other concerns. Referrals: TIBURCIO BLANKENSHIP MD [Primary Care Provider] - 3-5 Days PEDRO MAI MD [Staff Physician] - [facility] (Dr Mai is a supervisor wash house. Please follow up with him for further management/evaluation of your hypertension) Time of Disposition: 02:45
[2017-05-05] MEDS ORDERED: NORMODYNE IV ONE (02:04)
[2017-05-05 03:23] VITALS: BP 167/113
== END 2017-05-05 03:30 | disposition home or self-care (01) ==
LOC: ED 18:58
DX: I10 Essential (primary) hypertension (principal); R51 Headache; I50.9 Heart failure, unspecified
CPT/HCPCS: 36415; 70450; 80048; 81001; 85025; 93005; 93010; 96374; 99284